=== PATIENT | male | born 1970 | race Caucasian/White ===

== ENCOUNTER 2017-10-21 14:39 | Emergency (ER) | payer BC, OTHER ==
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
--- NOTE | 2017-10-22 13:41 | CR ---
Chest: Two views of the chest were obtained. Comparison: No prior chest x-ray. Heart size and mediastinum are normal. Lungs are clear. Minimal scoliosis is noted within the spine. Impression: 1. Nothing acute is identified on two-view chest x-ray. Diagnostic code #1
== END 2017-10-21 17:00 | disposition home or self-care (01) ==
LOC: JD.ED 14:39
DX: J06.9 Acute upper respiratory infection, unspecified (principal); K40.90 Unilateral inguinal hernia, without obstruction or gangrene, not specified as recurrent; F17.210 Nicotine dependence, cigarettes, uncomplicated; F90.9 Attention-deficit hyperactivity disorder, unspecified type; Z79.2 Long term (current) use of antibiotics; Z79.899 Other long term (current) drug therapy; Z98.890 Other specified postprocedural states
CPT/HCPCS: 71046; 71046-26; 87081; 87430; 87804; 99283; 99284